=== PATIENT | female | born 1980 | race African-American/Black ===

== ENCOUNTER 2022-02-15 12:07 | Emergency (ER) | payer OTHER ==
[~2022-02-15] VITALS: Ht 175.3 cm; Wt 64.0 kg
[2022-02-15 12:15] VITALS: BP 131/90
[2022-02-15] MEDS ORDERED: NAPROXEN 375MG TABLET PO ONE (14:15)
[2022-02-15 14:34] LABS: BASOPHILS % 0.3 % (0.0-2.0); EOSINOPHILS % 0.7 % (0.0-5.0); HEMATOCRIT. 35.8 % (36.0-48.0); LYMPHOCYTES % 26.9 % (20.0-50.0); MEAN CORPUSCULAR HEMOGLOBIN 31.8 pg (28.0-32.0); MEAN CORPUSCULAR VOLUME 94.9 fL (81.0-99.0); MEAN PLATELET VOLUME 8.5 fl (7.4-10.4); MONOCYTES % 6.7 % (2.0-8.0); NEUTROPHILS % 65.4 % (40.0-76.0); PLATELET 245 x1000/uL (130-400); RED BLOOD CELL COUNT 3.77 mill/uL (4.2-5.4); RED CELL DISTRIBUTION WIDTH 15.1 % (11.6-14.6)
[2022-02-15 14:47] LABS: CHLORIDE 109 mEq/L (98-107)
[2022-02-15 14:57] LABS: HCG SCREEN NEGATIVE
== END 2022-02-15 17:00 | disposition home or self-care (01) ==
LOC: ER 12:35
DX: M79.89 Other specified soft tissue disorders (principal); M79.662 Pain in left lower leg; M79.661 Pain in right lower leg; Z88.0 Allergy status to penicillin; Z88.2 Allergy status to sulfonamides
CPT/HCPCS: 36415; 71045; 80053; 83880; 84703; 85025; 93005; 93970; 99285